=== PATIENT | male | born 1980 | race Caucasian/White ===

== ENCOUNTER 2016-06-12 10:13 | Emergency (ER) | payer MEDICAID, OTHER | END 2016-06-12 11:35 | disposition home or self-care (01) | LOC: ED 10:13 | DX: M54.31 Sciatica, right side (principal); G40.409 Other generalized epilepsy and epileptic syndromes, not intractable, without status epilepticus; E03.9 Hypothyroidism, unspecified; Z92.21 Personal history of antineoplastic chemotherapy; F17.220 Nicotine dependence, chewing tobacco, uncomplicated; Z79.899 Other long term (current) drug therapy; Z79.891 Long term (current) use of opiate analgesic ==